=== PATIENT | female | born 1960 | race Caucasian/White ===

== ENCOUNTER 2021-09-02 08:48 | Day surgery (SDC) | payer OTHER | END 2021-09-02 23:40 | disposition home or self-care (01) | LOC: MOI US 08:48 | DX: C50.912 Malignant neoplasm of unspecified site of left female breast (principal) | CPT/HCPCS: 19285; 77065; A4648 ==

== ENCOUNTER 2021-09-05 07:57 | Day surgery (SDC) | payer OTHER ==
[~2021-09-05] VITALS: Ht 160 cm; Wt 52.6 kg
--- NOTE | 2021-09-05 10:42 | NUR ---
Ambulatory in Day Surgery. History, Chart, Medications and Allergies reviewed before start of procedure. Lungs clear T/O to Auscultation. Patient confirms NPO status and agrees with scheduled surgery. Pre-Op teaching done. Pt verbalizes understanding. Patient States Post-Procedure ride home has been arranged.
--- NOTE | 2021-09-05 15:02 | NUR ---
Discharge instructions reviewed with patient. Patient verbalizes understanding. Copy given to patient to take home. Dressing to procedure site clean, dry, intact with no visible drainage, swelling, erythema or bruising noted.
--- NOTE | 2021-09-05 15:28 | NUR ---
Discharged via wheelchair to private car for ride home.
--- NOTE | 2021-09-06 12:08 | NUR ---
09/06/21 1208 Pati Watters VERIFICATIONS: EDIT CHART.
== END 2021-09-05 15:29 | disposition home or self-care (01) ==
LOC: ORSCMMR 07:57 → NM 09:00 → ORSCMMR 15:29
PROVIDERS: Surgery
PROC: 0HBU0ZZ Excision of Left Breast, Open Approach (ICD-10-PCS; principal; 2021-09-05 11:30)
PROC: 07B60ZX Excision of Left Axillary Lymphatic, Open Approach, Diagnostic (ICD-10-PCS; principal; 2021-09-05 11:30)
DX: C50.912 Malignant neoplasm of unspecified site of left female breast (principal); D36.0 Benign neoplasm of lymph nodes; Z17.0 Estrogen receptor positive status [ER+]; F17.210 Nicotine dependence, cigarettes, uncomplicated
CPT/HCPCS: 38792; 76098; 88305; 88307; 88341; 88342; A9270; A9520; J0690; J1100; J2250; J2370; J2405; J2704; J2710; J3010; J7120; Q9968

== ENCOUNTER → 2023-10-10 | Outpatient (CLI) | payer BC | END | disposition home or self-care (01) | LOC: LAB 07:51 → LAB SHORT 07:51 | DX: K21.9 Gastro-esophageal reflux disease without esophagitis (principal) | CPT/HCPCS: 87338 ==